=== PATIENT | female | born 1980 | race Caucasian/White ===

== ENCOUNTER → 2017-07-13 | Outpatient (CLI) | payer BC ==
[~2017-07-13] MED LIST: PREN-162 PO
[2017-07-13 16:53] LABS: PLATELET COUNT, AUTOMATED 305 K/uL (150-450)
== END ==
LOC: LAB 16:39
PROVIDERS: ATTEND Emergency Medicine
DX: R63.5 Abnormal weight gain (principal)
CPT/HCPCS: 36415; 82040; 82247; 82310; 82374; 82435; 82565; 82947; 84075; 84132; 84155; 84295; 84443; 84450; 84460; 84520; 85025

== ENCOUNTER → 2017-07-18 | Outpatient (CLI) | payer BC ==
--- NOTE | 2017-07-18 17:00 | RADIOLOGY IMAGING REPORT ---
[place] [facility] [place] : 1980 MR: [id number] V: [id number] EXAM DATE: ORDERING PHYSICIAN: CASH LOO TECHNOLOGIST: Location: [facility] [place] Patient: Faith Diaz : 1980 Visit/Account:[id number] Date of Sevice: 07/18/2017 LIVER HISTORY: Elevated LFTs COMPARISON: None. FINDINGS: Gallbladder: Unremarkable; no stones or sludge. Liver: The liver is enlarged measuring 19 cm in length. There is increased echogenicity throughout t he liver which can be seen with fatty infiltration or other infiltrative process. Common duct: Normal, 3.2 mm diameter. Pancreas: Partially obscured by bowel, visualized aspects unremarkable. Right kidney: Right kidney appears unremarkable measuring 10.2 cm in length. Resistive index is 0.58 Upper abdominal aorta and IVC: Patent. Ascites: None visualized. IMPRESSION: Hepatomegaly with increased echogenicity throughout liver which can be seen with fatty infiltration o r other infiltrative process Report Dictated By: Magalys Alcala MD at 07/18/2017 4:52 PM Report E-Signed By: Magalys Alcala MD at 07/18/2017 4:54 PM WSN:[email or web address]
== END ==
LOC: US 06:47
PROVIDERS: ATTEND Emergency Medicine
DX: K76.0 Fatty (change of) liver, not elsewhere classified (principal); R16.0 Hepatomegaly, not elsewhere classified
CPT/HCPCS: 36415; 76705; 82103; 82390; 82550; 82784; 83516; 83540; 83550; 86038; 86706; 86707; 86803; 87340; 87350

== ENCOUNTER → 2017-09-09 | Outpatient (CLI) | payer BC | LOC: LAB 09:04 | PROVIDERS: ATTEND Emergency Medicine | DX: R74.8 Abnormal levels of other serum enzymes (principal) | CPT/HCPCS: 36415 ==